=== PATIENT | female | born 1975 | race African-American/Black ===

== ENCOUNTER 2017-08-06 06:09 | Inpatient (IN) | payer OTHER ==
[2017-07-29 14:02] VITALS: BMI 19.9
[2017-08-06] MEDS ORDERED: CEFAZOLIN 2 GM in DEXTROSE 5%-WATER - 100 ML IVPB ONE (07:47)
[2017-08-06] MEDS ORDERED: DEXAMETHASONE SOD PHOSPHATE 4 MG/1 ML VIAL ONE (07:54)
[2017-08-06] MEDS ORDERED: fentaNYL CITRATE 250 MCG/5 ML VIAL ONE (07:55)
[2017-08-06] MEDS ORDERED: PROPOFOL 20 ML ONE (07:55)
[2017-08-06] MEDS ORDERED: ROCURONIUM BROMIDE 50 MG/5 ML VIAL ONE (07:55)
[2017-08-06] MEDS ORDERED: MIDAZOLAM HCL 2 MG/2 ML SINGLE DOSE VIAL ONE (07:55)
[2017-08-06] MEDS ORDERED: SUCCINYLCHOLINE CHLORIDE 200 MG/10 ML VIAL ONE (07:55)
[2017-08-06] MEDS ORDERED: VASOPRESSIN 20 UNITS/ML VIAL IV ONE (08:02)
--- NOTE | 2017-08-06 08:05 | HP ---
Admitting History and Physical - Admission Chief Complaint: Abnormal vaginal bleeding History of Present Illness: 41 yo Para 3, LMP 07/11/17, with h/0 heavy and prolonged menses is pre op for vaginal hysterectomy. History Source: Patient Limitations to Obtaining History: No Limitations - Past Medical History ...LMP: 07/11/17 ...: No ...Para: 3 - Past Surgical History Past Surgical History: Yes: None - Smoking History Smoking history: Current every day smoker Have you smoked in the past 12 months: Yes Aproximately how many cigarettes per day: 10 - Alcohol/Substance Use Hx Alcohol Use: No - Social History History of Recent Travel: No Home Medications - Allergies Allergies/Adverse Reactions: Allergies Allergy/AdvReac Type Severity Reaction Status Date / Time No Known Allergies Allergy Verified 08/06/17 06:40 - Home Medications Home Medications: Ambulatory Orders NK [No Known Home Medication] 07/29/17 Family Disease History - Family Disease History Family History: Unremarkable Review of Systems - Review of Systems Constitutional: reports: No Symptoms Eyes: reports: No Symptoms HENT: reports: No Symptoms Neck: reports: No Symptoms Cardiovascular: reports: No Symptoms Respiratory: reports: No Symptoms Gastrointestinal: reports: No Symptoms Genitourinary: reports: No Symptoms Breasts: reports: No Symptoms Reported Musculoskeletal: reports: No Symptoms Integumentary: reports: No Symptoms Neurological: reports: No Symptoms Endocrine: reports: No Symptoms Hematology/Lymphatic: reports: No Symptoms Psychiatric: reports: No Symptoms Pain Intensity: 0 Physical Examination Vital Signs: Vital Signs Temperature 99.0 F 08/06/17 06:50 Pulse Rate 99 H 08/06/17 06:50 Respiratory Rate 16 08/06/17 06:50 Blood Pressure 131/80 08/06/17 06:50 O2 Sat by Pulse Oximetry (%) 99 08/06/17 06:47 Constitutional: Yes: Well Nourished Eyes: Yes: Conjunctiva Clear HENT: Yes: Atraumatic Neck: Yes: Supple Cardiovascular: Yes: Regular Rate and Rhythm Respiratory: Yes: Regular Gastrointestinal: Yes: Normal Bowel Sounds Musculoskeletal: Yes: WNL Extremities: Yes: WNL Neurological: Yes: Alert, Oriented ...Motor Strength: WNL Psychiatric: Yes: Alert, Oriented Problem List - Problems (1) Menorrhagia with regular cycle Code(s): N92.0 - EXCESSIVE AND FREQUENT MENSTRUATION WITH REGULAR CYCLE (2) Leiomyoma of body of uterus Code(s): D25.9 - LEIOMYOMA OF UTERUS, UNSPECIFIED Qualifiers: Uterine leiomyoma location: intramural Qualified Code(s): D25.1 - Intramural leiomyoma of uterus Assessment/Plan Menorrhagia Leiomyoma of the uterus Pre op for vaginal hysterectomy COnsent signed Anesthesia to see patient
[2017-08-06] MEDS ORDERED: ceFAZolin SODIUM 1 GM VIAL IVPB ONE (08:15)
[2017-08-06] MEDS ORDERED: ceFAZolin SODIUM 1 GM VIAL ONE (08:17)
[2017-08-06] MEDS ORDERED: DESFLURANE GAS 240 ML BOTTLE IH ONE (09:04)
[2017-08-06] MEDS ORDERED: metroNIDAZOLE 0.75% VAGINAL GEL 70 GM TUBE ONE (09:40)
[2017-08-06] MEDS ORDERED: metroNIDAZOLE 0.75% VAGINAL GEL 70 GM TUBE VG ONE (09:46)
--- NOTE | 2017-08-06 10:04 | SURG ---
Surgery Binding Cutter Synthetic Cloth Note Binding Cutter Synthetic Cloth: Andre Ochoa PA-C Date of Service: 08/06/17 Diagnosis: Fibroid Uterus Procedure: Vaginal hysterectomy I was present for the entirety of the operative procedure. For further detail, please refer to operative report.
[2017-08-06] MEDS ORDERED: diphenhydrAMINE HCL 25 MG CAPSULE (FP) PO PRN (10:31)
[2017-08-06] MEDS ORDERED: ONDANSETRON 4 MG/2 ML VIAL IVPB PRN (10:31)
[2017-08-06] MEDS ORDERED: PROCHLORPERAZINE INJECTION 10 MG/2 ML VIAL IVPB PRN (10:31)
--- NOTE | 2017-08-06 10:38 | OP ---
Operative Note - Note: Operative Date: 08/06/17 Pre-Operative Diagnosis: Menorrhagia Operation: Vaginal hysterectomy Findings: Irregular shape uterus with multiple fibroids Post-Operative Diagnosis: Same as Pre-op Surgeon: Cathy Suárez Washtub Worker Helper: Andre Ochoa Anesthesia: General Specimens Removed: Uterus / Cervix Estimated Blood Loss (mls): 100
[2017-08-06] MEDS ORDERED: ACETAMINOPHEN 325 MG TABLET (FP) PO PRN (11:16)
[2017-08-06] MEDS: DEXTROSE 5%-LACTATED RINGERS 1,000 ML IV SCH ×2 (13:53→18:02)
[2017-08-06] MEDS: oxyCODONE HCL 5 MG TABLET PO PRN (18:02)
[2017-08-07] MEDS: oxyCODONE HCL 5 MG TABLET PO PRN ×3 (00:01→21:14)
[2017-08-07] MEDS: ACETAMINOPHEN 325 MG TABLET (FP) PO PRN ×4 (02:42→21:15)
[2017-08-07 07:34] LABS: HEMATOCRIT 19.9 % (32.4-45.2); MCHC 28.7 g/dl (32.0-36.0); MEAN CELL VOLUME 56.2 fl (80-96); MEAN PLT VOLUME 8.8 fl (7.5-11.1); PLATELET COUNT 152 K/MM3 (134-434); RBC 3.54 M/mm3 (3.60-5.2); RDW 27.1 % (11.6-15.6); WHITE BLOOD COUNT 16.8 K/mm3 (4.0-10.0)
[2017-08-07 07:35] LABS: MCH 16.2 pg (25.7-33.7)
--- NOTE | 2017-08-07 07:35 | PN ---
Progress Note, Physician Chief Complaint: Status post vaginal hysterectomy History of Present Illness: 41 yo status post vaginal hysterectomy, seen and evaluated. She's lying in bed c/o incision pain. - Current Medication List Current Medications: Active Medications Acetaminophen (Tylenol -) 650 mg PO Q4H PRN PRN Reason: FEVER Last Admin: 08/07/17 02:42 Dose: 650 mg Acetaminophen (Tylenol -) 325 mg PO Q4H PRN PRN Reason: PAIN LEVEL 1-5 Stop: 08/09/17 11:15 Diphenhydramine HCl (Benadryl Injection -) 25 mg IVPB Q6H PRN PRN Reason: FOR ITCHING Diphenhydramine HCl (Benadryl -) 25 mg PO Q6H PRN PRN Reason: FOR ITCHING Dextrose/Lactated Ringer's (D5-Lr -) 1,000 mls @ 125 mls/hr IV ASDIR ANNA Last Admin: 08/06/17 18:02 Dose: 125 mls/hr Ondansetron HCl (Zofran Injection) 8 mg IVPB Q8H PRN PRN Reason: NAUSEA Oxycodone HCl (Roxicodone -) 5 mg PO Q4H PRN PRN Reason: PAIN LEVEL 1-5 Last Admin: 08/07/17 00:01 Dose: 5 mg Prochlorperazine Edisylate (Compazine Injection -) 25 mg IVPB Q6H PRN PRN Reason: NAUSEA AND/OR VOMITING - Objective Vital Signs: Vital Signs Temperature 99.8 F H 08/07/17 06:28 Pulse Rate 65 08/07/17 06:28 Respiratory Rate 20 08/07/17 06:28 Blood Pressure 114/59 08/07/17 06:28 O2 Sat by Pulse Oximetry (%) 100 08/06/17 21:00 Constitutional: Yes: No Distress Eyes: Yes: Conjunctiva Clear HENT: Yes: Atraumatic Neck: Yes: Supple Cardiovascular: Yes: Regular Rate and Rhythm Respiratory: Yes: Regular Gastrointestinal: Yes: Normal Bowel Sounds Genitourinary: Yes: Other (Vaginal packing removed, no bleeding.) Breast(s): Yes: WNL Musculoskeletal: Yes: Joint Stiffness Extremities: Yes: WNL Neurological: Yes: Alert, Oriented Psychiatric: Yes: Alert, Oriented Problem List - Problems (1) Menorrhagia with regular cycle Code(s): N92.0 - EXCESSIVE AND FREQUENT MENSTRUATION WITH REGULAR CYCLE (2) Leiomyoma of body of uterus Code(s): D25.9 - LEIOMYOMA OF UTERUS, UNSPECIFIED Qualifiers: Uterine leiomyoma location: intramural Qualified Code(s): D25.1 - Intramural leiomyoma of uterus Assessment/Plan Status post vaginal hysterectomy D/C Amaya catheter D/C vaginal packing Regular diet Ambulation Discharge home with analgesia F/U with MD in 2 weeks
[2017-08-07 07:37] LABS: HEMOGLOBIN 5.7 GM/dL (10.7-15.3)
--- NOTE | 2017-08-07 07:38 | DS ---
Physical Examination Vital Signs: Vital Signs Temperature 99.8 F H 08/07/17 06:28 Pulse Rate 65 08/07/17 06:28 Respiratory Rate 20 08/07/17 06:28 Blood Pressure 114/59 08/07/17 06:28 O2 Sat by Pulse Oximetry (%) 100 08/06/17 21:00 Constitutional: Yes: Calm Eyes: Yes: Conjunctiva Clear HENT: Yes: Atraumatic Neck: Yes: Supple Cardiovascular: Yes: Regular Rate and Rhythm Respiratory: Yes: Regular Gastrointestinal: Yes: Normal Bowel Sounds Breast(s): Yes: WNL Musculoskeletal: Yes: WNL Extremities: Yes: WNL Neurological: Yes: Alert, Oriented ...Motor Strength: WNL Psychiatric: Yes: Alert, Oriented Discharge Summary Reason For Visit: LEIOMYOMA OF UTERUS Current Active Problems Leiomyoma of body of uterus (Acute) Menorrhagia with regular cycle (Acute) Status post vaginal hysterectomy (Acute) Procedures: Principal: Vaginal hysterectomy Hospital Course: Routine post op care Condition: Fair - Instructions Diet, Activity, Other Instructions: Regular diet No douching, no sexual activities x 4 weeks F/U with MD in 2 weeks Disposition: HOME - Home Medications Comprehensive Discharge Medication List: Ambulatory Orders NK [No Known Home Medication] 07/29/17
[2017-08-07 08:23] LABS: CHLORIDE 106 mmol/L (98-107); POTASSIUM 3.5 mmol/L (3.5-5.1); SODIUM 141 mmol/L (136-145)
[2017-08-07 08:44] LABS: ANION GAP 10 (8-16); BLOOD UREA NITROGEN 3 mg/dL (7-18); CALCIUM 7.6 mg/dL (8.5-10.1); CO2 25 mmol/L (21-32); CREATININE 0.5 mg/dL (0.55-1.02); GLUCOSE,RANDOM 122 mg/dL (74-106)
--- NOTE | 2017-08-07 09:54 | PN ---
Progress Note (short form) - Note Progress Note: Labs results found to show evidence of severe anemia and leukocytosis. Discharge home will be placed on hold. Blood transfusion and antibiotic ordered. F/U repeat CBC 4 hours after transfusion. Problem List - Problems (1) Menorrhagia with regular cycle Code(s): N92.0 - EXCESSIVE AND FREQUENT MENSTRUATION WITH REGULAR CYCLE (2) Leiomyoma of body of uterus Code(s): D25.9 - LEIOMYOMA OF UTERUS, UNSPECIFIED Qualifiers: Uterine leiomyoma location: intramural Qualified Code(s): D25.1 - Intramural leiomyoma of uterus
[2017-08-07] MEDS ORDERED: CEFAZOLIN 1 GM in DEXTROSE 5%-WATER - 50 ML IVPB SCH (10:00)
[2017-08-07] MEDS: DEXTROSE 5%-LACTATED RINGERS 1,000 ML IV SCH (11:28)
[2017-08-07] MEDS ORDERED: ceFAZolin SODIUM 1 GM VIAL ONE ×2 (14:49→21:10)
[2017-08-07] MEDS ORDERED: DEXTROSE 5%-WATER - 50 ML IVPB ONE ×2 (14:49→21:10)
[2017-08-07] MEDS: CEFAZOLIN 1 GM in DEXTROSE 5%-WATER - 50 ML IVPB SCH ×2 (14:57→21:16)
[2017-08-08 00:57] LABS: HEMATOCRIT 27.2 % (32.4-45.2); HEMOGLOBIN 8.4 GM/dL (10.7-15.3); MCHC 30.7 g/dl (32.0-36.0); MEAN CELL VOLUME 62.1 fl (80-96); MEAN PLT VOLUME 8.9 fl (7.5-11.1); PLATELET COUNT 161 K/MM3 (134-434); RBC 4.38 M/mm3 (3.60-5.2); RDW 34.6 % (11.6-15.6); WHITE BLOOD COUNT 19.4 K/mm3 (4.0-10.0)
[2017-08-08 00:59] LABS: MCH 19.1 pg (25.7-33.7)
[2017-08-08] MEDS: oxyCODONE HCL 5 MG TABLET PO PRN (06:48)
[2017-08-08 07:45] VITALS: BP 135/82; PULSE 82; TEMP 99.4
[2017-08-08] MEDS: ACETAMINOPHEN 325 MG TABLET (FP) PO PRN (15:08)
== END 2017-08-08 15:45 | disposition home or self-care (01) | DRG 519 ==
LOC: JASUSAT 06:09 → J8W 12:59 → JASUSAT 13:00 → J8W 13:00
PROVIDERS: ADMIT Obstetrics & Gynecology; ATTEND Obstetrics & Gynecology
PROC: 0UT98ZL Resection of Uterus, Supracervical, Via Natural or Artificial Opening Endoscopic (ICD-10-PCS; principal; 2017-08-06 08:00)
DX: D25.1 Intramural leiomyoma of uterus (principal); F17.210 Nicotine dependence, cigarettes, uncomplicated; N92.0 Excessive and frequent menstruation with regular cycle; D64.9 Anemia, unspecified
CPT/HCPCS: 36415; 36430; 80048; 84703; 85027; 86850; 86900; 86901; 86922; 88307-TC; 94760; P9038; P9058

== ENCOUNTER 2018-08-16 00:47 | Emergency (ER) | payer OTHER ==
[2018-08-16 01:38] VITALS: TEMP 98.7; BMI 21.2
--- NOTE | 2018-08-16 01:53 | PDOC ---
Attending Attestation - Resident Resident Name: Lashell Allen - ED Attending Attestation I have performed the following: I have examined & evaluated the patient, The case was reviewed & discussed with the resident, I agree w/resident's findings & plan - HPI HPI: 08/16/18 04:10 42-year-old female with diffuse abdominal cramping and nausea as well as diarrhea, patient admits to similar symptoms being present and family member - Physicial Exam PE: 08/16/18 04:16 agree with resident's exam - Medical Decision Making 08/16/18 04:38 42-year-old female with abdominal cramping and diarrhea Patient symptoms are completely resolved and she is requesting to be discharged she can go by [facility] after a GI cocktail in the emergency department Labs are unremarkable Microscopic hematuria appears to be chronic This was discussed with the patient who was advised to follow-up with her regular physician for possible nephrology evaluation
[2018-08-16] MEDS ORDERED: BISMUTH SUBSALICYLATE 262 MG/15 ML BTL PO ONE (02:01)
[2018-08-16] MEDS ORDERED: MAG HYDROX/AL HYDROX/SIMETH -MYLANTA- ORAL SUSPENSION PO ONE (02:01)
[2018-08-16] MEDS ORDERED: SODIUM CHLORIDE 0.9% 500 ML INFUS.BAG IV ONE (02:01)
--- NOTE | 2018-08-16 02:04 | PDOC ---
History of Present Illness - General Chief Complaint: Pain Stated Complaint: ABD/BACK PAIN Time Seen by Provider: 08/16/18 01:15 History Source: Patient - History of Present Illness Initial Comments: 08/16/18 02:02 The patient is a 42 year old female with no signficant reported PMH who presents to our ED c/o acute onset of abdominal cramping. Cramping is sharp, diffuse, intermittent. Nausea w/o vomiting. H/o family member with similar symptoms last week. Past History - Past Medical History Allergies/Adverse Reactions: Allergies Allergy/AdvReac Type Severity Reaction Status Date / Time No Known Allergies Allergy Verified 08/16/18 01:38 Home Medications: Ambulatory Orders Oxycodone HCl/Acetaminophen [Percocet 5-325 mg Tablet] 1 tab PO Q4H PRN #20 tablet MDD 20 mg 08/07/17 Anemia: Yes - Immunization History Td Vaccination: Yes Immunization Up to Date: Yes - Suicide/Smoking/Psychosocial Hx Smoking Status: No Smoking History: Never smoked Years of Tobacco Use: 0 Have you smoked in the past 12 months: No Number of Cigarettes Smoked Daily: 7 Cigars Per Day: 0 Information on smoking cessation initiated: No 'Breaking Loose' booklet given: 08/07/17 Hx Alcohol Use: Yes (weekend) Drug/Substance Use Hx: No Substance Use Type: None Hx Substance Use Treatment: No Review of Systems - Review of Systems Constitutional: Yes: Chills. No: Fever HEENTM: No: Recent change in vision Respiratory: No: Cough, Shortness of Breath Cardiac (ROS): No: Chest Pain, Lightheadedness, Palpitations, Syncope ABD/GI: Yes: Nausea, Abdominal cramping. No: Constipated, Diarrhea, Vomiting *Physical Exam - Vital Signs Last Vital Signs Temp Pulse Resp BP Pulse Ox 98.7 F 75 17 118/84 100 08/16/18 00:47 08/16/18 00:47 08/16/18 00:47 08/16/18 00:47 08/16/18 00:47 - Physical Exam General Appearance: Yes: Nourished, Appropriately Dressed HEENT: positive: Normal Voice, Hearing Grossly Normal Neck: positive: Trachea midline, Supple Respiratory/Chest: positive: Lungs Clear, Normal Breath Sounds Cardiovascular: positive: S1, S2, Systolic Murmur Vascular Pulses: Dorsalis-Pedis (R): 2+, Doralis-Pedis (L): 2+ Gastrointestinal/Abdominal: positive: Normal Bowel Sounds, Soft. negative: Distended, Guarding, Rebound, Tenderness, Hernia, Mass Musculoskeletal: negative: CVA Tenderness (R), CVA Tenderness (L) Extremity: positive: Normal Capillary Refill, Normal Inspection Integumentary: positive: Normal Color, Dry, Warm Neurologic: positive: rn ent II-XII NML intact, Fully Oriented, Alert Heart Score/ECG Review - ECG Impressions Comment:: 08/16/18 02:46 Sinus rhythm, HR 65, no TANESHA/STD/TWI ED Treatment Course - LABORATORY CBC & Chemistry Diagram: 08/16/18 02:34 08/16/18 02:34 Medical Decision Making - Medical Decision Making 08/16/18 02:04 42 year old well appearing female with acute onset of abdominal cramping. VS unremarkable Soft belly, no TTP. Frontal diagnosis: gastritis/gastroenteritis, , less likely acute abdomen including appendectomy, cholecystitis, cystitis/pyelonephritis Will give GI cocktail, Troponin x1 (abdominal pain as anginal equivalent), Basic Labs, Lipase. GI cocktail Reassess. 08/16/18 02:45 EKG non-ischemic as documented in EKG section of EMR 08/16/18 03:46 Troponin (-) x1 CBC, CMP unremarkable UA pending Patient reassessed @ bedside, symptomatically improved. Resting comfortably. Requesting PO intake. 08/16/18 04:04 UA shows 2+ blood - as per EMR, chronic h/o hematuria. Will tell patient to follow-up with PMD with possible nephrology referral. I discussed the physical exam findings, ancillary test results and final diagnoses with the patient. I answered all of the patient's questions. The patient was satisfied with the care received and felt comfortable with the discharge plan and treatment plan. The patient will return to the Emergency Department with any new, persistent or worsening symptoms. *DC/Admit/Observation/Transfer Diagnosis at time of Disposition: Abdominal pain - Discharge Dispostion Disposition: HOME Condition at time of disposition: Improved Decision to Admit order: No - Referrals Referrals: Manfred Orellana MD [Primary Care Provider] - - Patient Instructions Printed Discharge Instructions: DI for Abdominal Pain-Adult Additional Instructions: Please make a follow up appointment with your primary care doctor in the next 3 days. Please tell her you had blood in your urine, you may require referral to a nutritionalist. Return to the Emergency Department for any new/worsening/concerning symptoms. - Post Discharge Activity Forms/Work/School Notes: Back to Work Activity Comments: 08/16/18 04:06
[2018-08-16 02:42] LABS: BASO % 0.4 % (0-2.0); EOS % 0.5 % (0-4.5); HEMOGLOBIN 13.9 GM/dL (10.7-15.3); LYMPH % 21.7 % (8-40); MCHC 32.3 g/dl (32.0-36.0); MEAN CELL VOLUME 71.2 fl (80-96); MEAN PLT VOLUME 9.1 fl (7.5-11.1); MONO % 10.4 % (3.8-10.2); PLATELET COUNT 267 K/MM3 (134-434); RBC 6.04 M/mm3 (3.60-5.2); RDW 15.7 % (11.6-15.6); WHITE BLOOD COUNT 7.3 K/mm3 (4.0-10.0)
[2018-08-16] MEDS ORDERED: MAG HYDROX/AL HYDROX/SIMETH 30 ML UNIT-DOSE CUP ONE (02:44)
[2018-08-16 03:10] LABS: ALBUMIN 3.6 g/dl (3.4-5.0); ALK PHOS 118 U/L (45-117); ANION GAP 6 MMOL/L (8-16); BILIRUBIN,TOTAL 0.9 mg/dL (0.2-1); BLOOD UREA NITROGEN 8.6 mg/dL (7-18); CALCIUM 9.1 mg/dL (8.5-10.1); CHLORIDE 106 mmol/L (98-107); CO2 25 mmol/L (21-32); CREATININE 0.6 mg/dL (0.55-1.3); GLUCOSE,RANDOM 87 mg/dL (74-106); POTASSIUM 4.4 mmol/L (3.5-5.1); SGOT/AST 16 U/L (15-37); SGPT/ALT 17 U/L (13-61); SODIUM 137 mmol/L (136-145); TOT PROT 6.8 g/dl (6.4-8.2)
[2018-08-16 03:35] LABS: EPI CELLS 1.4 /HPF (0-5/HPF); HYALINE CASTS 1 /lpf (0-8); PH,URINE 6.5 (5.0-8.0); URINE APPEARANCE CLEAR; URINE BACTERIA 69.2 /hpf (NEGATIVE); URINE BILIRUBIN NEGATIVE (NEGATIVE); URINE COLOR YELLOW; URINE GLUCOSE (UA) NEGATIVE (NEGATIVE); URINE KETONE NEGATIVE (NEGATIVE); URINE LEUK ESTERASE NEGATIVE (NEGATIVE); URINE NITRITE NEGATIVE (NEGATIVE); URINE PROTEIN NEGATIVE (NEGATIVE); URINE RBC 15 /hpf (0-4); URINE WBC 1 /hpf (0-5)
[2018-08-16 04:32] VITALS: BP 125/96; PULSE 74
--- NOTE | 2018-08-16 10:33 | EKG ---
Test Reason : Blood Pressure : / mmHG Vent. Rate : 065 BPM Atrial Rate : 065 BPM P-R Int : 160 ms QRS Dur : 062 ms QT Int : 388 ms P-R-T Axes : 067 000 052 degrees QTc Int : 403 ms SINUS RHYTHM WITH OCCASIONAL PREMATURE VENTRICULAR COMPLEXES OTHERWISE NORMAL ECG Confirmed by MD SYED, ALMA ([id number]) on 08/16/2018 10:33:03 AM Referred By: Confirmed By:ALMA LYNCH MD
== END 2018-08-16 04:32 | disposition home or self-care (01) ==
LOC: JER 00:47
PROC: 3E0337Z Introduction of Electrolytic and Water Balance Substance into Peripheral Vein, Percutaneous Approach (ICD-10-PCS; principal; 2018-08-16)
DX: R10.9 Unspecified abdominal pain (principal); R11.0 Nausea; R19.7 Diarrhea, unspecified
CPT/HCPCS: 36415; 80053; 81003; 82550; 83690; 84484; 84703; 85025; 87086; 93005; 93010; 99282-25

== ENCOUNTER 2019-01-16 13:06 | Emergency (ER) | payer OTHER ==
[2019-01-16 13:30] VITALS: BP 147/88; PULSE 80; TEMP 99.4; BMI 21.9
[2019-01-16] MEDS ORDERED: DEXAMETHASONE LIQUID 0.5 MG/5 ML PO ONE (13:55)
--- NOTE | 2019-01-16 13:55 | PDOC ---
History of Present Illness - General Chief Complaint: Sore Throat Stated Complaint: SORE THROAT/STIFF NECK Time Seen by Provider: 01/16/19 13:51 - History of Present Illness Initial Comments: 01/16/19 13:55 43-year-old female with a past medical history of hypertension presents for evaluation of sore throat and systemic symptoms without fever x3 days Past History - Past Medical History Allergies/Adverse Reactions: Allergies Allergy/AdvReac Type Severity Reaction Status Date / Time No Known Allergies Allergy Verified 01/16/19 13:30 Home Medications: Ambulatory Orders Oxycodone HCl/Acetaminophen [Percocet 5-325 mg Tablet] 1 tab PO Q4H PRN #20 tablet MDD 20 mg 08/07/17 Anemia: Yes COPD: No - Immunization History Td Vaccination: Yes Immunization Up to Date: Yes - Psycho Social/Smoking Cessation Hx Smoking Status: No Smoking History: Current every day smoker Years of Tobacco Use: 0 Have you smoked in the past 12 months: No Number of Cigarettes Smoked Daily: 10 Cigars Per Day: 0 Information on smoking cessation initiated: No 'Breaking Loose' booklet given: 08/07/17 Hx Alcohol Use: No Drug/Substance Use Hx: No Substance Use Type: None Hx Substance Use Treatment: No Review of Systems - Review of Systems Constitutional: Yes: Chills, Malaise, Night Sweats. No: Fever HEENTM: Yes: Throat Swelling, Difficulty Swallowing *Physical Exam - Vital Signs Last Vital Signs Temp Pulse Resp BP Pulse Ox 99.4 F 80 16 147/88 99 01/16/19 13:10 01/16/19 13:10 01/16/19 13:10 01/16/19 13:10 01/16/19 13:10 - Physical Exam Comments: 01/16/19 13:55 HEAD: NC/AT EYES: Conjuntiva clear Ears: Canals and TM's normal NOSE: No d/c THROAT: Moist mucous membrances, oral pharanx erythemic with exudate, uvula midline NECK: Supple without adenopathy CARDIAC: S1 S2 LUNGS: CTA Full and Equal breath sounds ABDOMEN: Soft NT ND MS: Full ROM in all joints without edema NEUROLOGIC: No gross sensory or motor deficits, NVID SKIN: Normal color and temperature no lesions or rashes Medical Decision Making - Medical Decision Making 01/16/19 14:22 Negative rapid strep most likely a viral pharyngitis will hold off for now on antibiotics patient treated with Decadron will have her follow-up closely with primary care physician and instructions that we will call her should culture be positive. Discharge - Discharge Information Problems reviewed: Yes Clinical Impression/Diagnosis: Viral pharyngitis Condition: Stable Disposition: HOME - Admission No - Follow up/Referral Referrals: Ashley Byrd MD [Staff Physician] - - Patient Discharge Instructions Patient Printed Discharge Instructions: Viral Pharyngitis, DI for Viral Pharyngitis Additional Instructions: Your rapid strep test today was negative. Tylenol and Motrin as directed for pain. Warm salt water gargles will also help with your pain. A culture was sent should you require antibiotics we will call you. Please without fail follow-up with your primary care physician in 1 to 2 days for further evaluation and treatment options. - Post Discharge Activity
[2019-01-16] MEDS ORDERED: DEXAMETHASONE SOD PHOSPHATE 10 MG/1 ML VIAL ONE (14:06)
== END 2019-01-16 14:35 | disposition home or self-care (01) ==
LOC: JERFT 13:06
DX: J02.9 Acute pharyngitis, unspecified (principal); B97.89 Other viral agents as the cause of diseases classified elsewhere; I10 Essential (primary) hypertension; F17.210 Nicotine dependence, cigarettes, uncomplicated
CPT/HCPCS: 87070; 87077; 87880; 99281-25

== ENCOUNTER 2020-08-18 07:27 | Emergency (ER) | payer OTHER ==
[2020-08-18 07:48] VITALS: BP 133/89; PULSE 64; TEMP 97.8; BMI 21.5
== END 2020-08-18 08:46 | disposition home or self-care (01) ==
LOC: JER 07:27
DX: M54.5 Low back pain (principal)
CPT/HCPCS: 99281-25

== ENCOUNTER 2022-06-22 16:51 | Emergency (ER) | payer OTHER ==
[2022-06-22 17:01] VITALS: BP 172/88; PULSE 80; RESP 19; TEMP 98.8; BMI 21.4
[2022-06-22] MEDS ORDERED: CYCLOBENZAPRINE HCL 10 MG TABLET (FP) PO ONE (17:26)
[2022-06-22] MEDS ORDERED: LIDOCAINE 5% TOPICAL PATCH TP ONE (17:26)
[2022-06-22] MEDS ORDERED: KETOROLAC TROMETHAMINE 30 MG/1 ML VIAL IM ONE (17:26)
[2022-06-22] MEDS ORDERED: CYCLOBENZAPRINE HCL 10 MG TABLET (FP) ONE (17:31)
[2022-06-22] MEDS ORDERED: LIDOCAINE 5% TOPICAL PATCH ONE (17:31)
[2022-06-22] MEDS ORDERED: KETOROLAC TROMETHAMINE 30 MG/1 ML VIAL ONE (17:31)
[2022-06-22] MEDS ORDERED: LIDOCAINE PATCH REMOVAL MC SCH (22:00)
== END 2022-06-22 18:05 | disposition home or self-care (01) ==
LOC: JERFT 16:51 → JER 16:51 → JERFT 18:05
PROC: 3E0233Z Introduction of Anti-inflammatory into Muscle, Percutaneous Approach (ICD-10-PCS; principal; 2022-06-22)
DX: M54.6 Pain in thoracic spine (principal); R07.81 Pleurodynia; M25.512 Pain in left shoulder; G89.29 Other chronic pain
CPT/HCPCS: 99284-25

== ENCOUNTER 2023-11-04 17:16 | Emergency (ER) | payer OTHER ==
[2023-11-04 17:23] VITALS: BP 169/109; PULSE 78; RESP 18; TEMP 99.1; BMI 20.6
[2023-11-04] MEDS ORDERED: KETOROLAC TROMETHAMINE 30 MG/1 ML VIAL ONE (18:56)
[2023-11-04] MEDS: KETOROLAC TROMETHAMINE 30 MG/1 ML VIAL IM ONE (19:00)
== END 2023-11-04 19:34 | disposition home or self-care (01) ==
LOC: JERFT 17:16
PROC: 3E0233Z Introduction of Anti-inflammatory into Muscle, Percutaneous Approach (ICD-10-PCS; principal; 2023-11-04)
DX: M54.6 Pain in thoracic spine (principal); G89.29 Other chronic pain
CPT/HCPCS: 99284-25